=== PATIENT | female | born 1985 | race African-American/Black ===

== ENCOUNTER 2016-12-27 08:41 | Observation (INO) | payer OTHER ==
[~2016-12-27] VITALS: Ht 162.6 cm; Wt 54.4 kg
[2016-12-27 08:54] VITALS: BP 137/70; TEMP 97.7
[2016-12-27 09:46] LABS: PLATELET COUNT 239 K/uL (152-353)
[2016-12-27 09:50] LABS: POTASSIUM 4.1 mmol/L (3.6-5.2); SODIUM 139 mmol/L (136-145)
[2016-12-27 13:57] VITALS: BP 104/60; TEMP 98.4; Ht 162.6 cm; Wt 54.4 kg
[2016-12-27 20:00] VITALS: BP 104/52; TEMP 98.7
[2016-12-28 00:18] VITALS: BP 101/49; TEMP 97.4
[2016-12-28 04:00] VITALS: BP 114/49; TEMP 98
[2016-12-28 05:25] LABS: PLATELET COUNT 215 K/uL (152-353)
[2016-12-28 05:54] LABS: POTASSIUM 3.3 mmol/L (3.6-5.2); SODIUM 136 mmol/L (136-145)
[2016-12-28 08:06] VITALS: BP 107/56; TEMP 98.6
[2016-12-28 12:00] VITALS: BP 110/59; BP 121/77; TEMP 98.4; TEMP 98.7
[2016-12-28 16:00] VITALS: BP 121/45; TEMP 98.1
[2016-12-28 20:28] VITALS: BP 116/58; TEMP 98.3
[2016-12-29] VITALS: BP 95/44; TEMP 98.1
[2016-12-29 04:00] VITALS: BP 99/45; TEMP 98
[2016-12-29 05:50] LABS: PLATELET COUNT 222 K/uL (152-353)
[2016-12-29 06:07] LABS: POTASSIUM 4.2 mmol/L (3.6-5.2); SODIUM 137 mmol/L (136-145)
[2016-12-29 08:24] VITALS: BP 139/68; TEMP 98.3
[2016-12-29 12:00] VITALS: BP 146/80; TEMP 97.8
[2016-12-29 16:00] VITALS: BP 112/67; TEMP 97.9
== END 2016-12-29 18:45 | disposition home or self-care (01) ==
LOC: ED 08:41 → MED/SURG 11:54
PROVIDERS: Emergency Medicine; ADMIT Specialist
DX: J98.01 Acute bronchospasm (principal); T65.891A Toxic effect of other specified substances, accidental (unintentional), initial encounter; J68.0 Bronchitis and pneumonitis due to chemicals, gases, fumes and vapors; Y92.89 Other specified places as the place of occurrence of the external cause
CPT/HCPCS: 36415; 36600; 80048; 80053; 82805; 83735; 85027; 85379; 94640; 94664; 94760; 96374; 96375; 99220; 99284; G0378; J1100; J1200; J2780; J2930; J3475; Q9963

== ENCOUNTER 2017-03-05 09:08 | Emergency (ER) | payer OTHER ==
[~2017-03-05] VITALS: Ht 157.5 cm; Wt 61.2 kg
[2017-03-05 09:40] VITALS: TEMP 98.9
[2017-03-05 10:01] LABS: PLATELET COUNT 154 K/uL (152-353)
[2017-03-05 10:05] LABS: POTASSIUM 3.7 mmol/L (3.6-5.2); SODIUM 137 mmol/L (136-145)
[2017-03-05 14:31] VITALS: BP 126/82
== END 2017-03-05 14:31 | disposition home or self-care (01) ==
LOC: ED 09:08
DX: N61.0 Mastitis without abscess (principal)
CPT/HCPCS: 36415; 80053; 85027; 99283